=== PATIENT | female | born 1965 | race African-American/Black ===

== ENCOUNTER 2017-11-21 15:59 | Emergency (ER) | payer OTHER ==
[~2017-11-21] VITALS: Ht 162.6 cm; Wt 78.0 kg
[~2017-11-21 15:59] MED LIST: ACETAMINOPHEN-1 EAC1 PO; ACID REDUCER20 MG PO; AMLODIPINE BESYL5 M1 PO; AUGMENTIN 875875 MG PO; CYMBALTA20 MG PO; DIFLUCAN200 MG PO; DOXYCYCLINE 10100 M1 PO; FISH OIL 1,001000 M2 PO; FISHOIL; FLAGYL500 MG PO; HYDROCODONE-AP1 EAC6 PO; K-DUR10 ME1; LISINOPRIL-HCT1 EAC1 PO; LISINOPRIL2.5 MG; MEDROLDOSEPACK PO; MULTIVITAMINS1 EAC7 PO; OMEPRAZOLE 20 M20 MG PO; PAXIL20 MG; ROBAXIN 750 MG750 M1 PO; VITAMIN D2000 UNIT PO; VOLTAREN GEL 1100 G2 TOP; WOMEN'S DAILY1 EACH PO
[2017-11-21] MEDS ORDERED: CYMBALTA60 MG PO (16:15)
[2017-11-21] MEDS ORDERED: METFORMIN HCL500 MG PO (16:15)
[2017-11-21] MEDS ORDERED: ZANAFLEX2 MG PO (17:00)
[2017-11-21] MEDS ORDERED: MOBIC7.5 MG PO (17:00)
[2017-11-21 17:25] VITALS: BP 136/96
== END 2017-11-21 17:27 | disposition home or self-care (01) ==
LOC: M.ERS 15:59
DX: S16.1XXA Strain of muscle, fascia and tendon at neck level, initial encounter (principal); G44.209 Tension-type headache, unspecified, not intractable; F32.9 Major depressive disorder, single episode, unspecified; F41.9 Anxiety disorder, unspecified; I10 Essential (primary) hypertension; F17.210 Nicotine dependence, cigarettes, uncomplicated; Z88.2 Allergy status to sulfonamides; X58.XXXA Exposure to other specified factors, initial encounter; Y93.89 Activity, other specified; Y92.89 Other specified places as the place of occurrence of the external cause; Y99.8 Other external cause status

== ENCOUNTER 2017-11-28 22:24 | Emergency (ER) | payer OTHER ==
[~2017-11-28] VITALS: Ht 162.6 cm; Wt 78.0 kg
[~2017-11-28 22:24] MED LIST changes: +CYMBALTA60 MG PO; +METFORMIN HCL500 MG PO; +MOBIC7.5 MG PO; +ZANAFLEX2 MG PO
[2017-11-28] MEDS ORDERED: CIPRO HC OTIC S10 ML OTIC (23:58)
[2017-11-29 00:19] VITALS: BP 136/88
== END 2017-11-29 00:21 | disposition home or self-care (01) ==
LOC: M.ERS 22:24
DX: H66.91 Otitis media, unspecified, right ear (principal); H61.21 Impacted cerumen, right ear; I10 Essential (primary) hypertension; F41.9 Anxiety disorder, unspecified; F32.9 Major depressive disorder, single episode, unspecified; F17.210 Nicotine dependence, cigarettes, uncomplicated; Z90.710 Acquired absence of both cervix and uterus; Z88.0 Allergy status to penicillin; Z90.49 Acquired absence of other specified parts of digestive tract

== ENCOUNTER 2020-02-04 19:15 | Emergency (ER) | payer OTHER ==
[~2020-02-04] VITALS: Ht 162.6 cm; Wt 81.7 kg
[~2020-02-04 19:15] MED LIST changes: +CIPRO HC OTIC S10 ML OTIC
[2020-02-04] MEDS ORDERED: ZYRTEC10 M5 PO (19:25)
[2020-02-04 20:04] LABS: URINE BILIRUBIN NEGATIVE (Negative); URINE BLOOD NEGATIVE (Negative); URINE CLARITY CLEAR; URINE COLOR YELLOW; URINE GLUCOSE-RANDOM NEGATIVE (Negative); URINE KETONES TRACE (Negative); URINE LEUKOCYTES-REFLEX NEGATIVE (Negative); URINE NITRITE-REFLEX NEGATIVE (Negative); URINE PROTEIN NEGATIVE (Negative); URINE UROBILINOGEN 0.2 E.U./dl (0.2-1.0)
[2020-02-04 20:15] LABS: ABSOLUTE BASOPHILS 0.1 thou/uL (0.0-0.2); ABSOLUTE MONOCYTES 0.5 thou/uL (0.0-1.2); ABSOLUTE NEUTROPHILS 7.1 thou/uL (1.6-8.1); BASOPHILS 0.9 %; EOSINOPHILS 0.5 %; HEMATOCRIT 42.9 % (37.0-47.0); HEMOGLOBIN 14.4 gm/dL (12.0-15.0); LYMPHOCYTES 20.1 %; MCH 29.2 pg (26.0-34.0); MCHC 33.7 g/dL (28.0-37.0); MCV 86.6 fL (80.0-100.0); MONOCYTES 5.2 %; MPV 8.3 fl. (7.2-11.1); NUCLEATED RBCS 0 /100WBC; PLATELET COUNT* 259 thou/uL (150-400); POLYS 73.3 %; RBC 4.95 mil/uL (4.20-5.00); RDW-CV 14.9 % (10.5-14.5); WBC 9.7 thou/uL (4.0-11.0)
[2020-02-04 20:28] LABS: CALCIUM 8.9 mg/dL (8.5-10.1)
[2020-02-04 20:32] LABS: ALBUMIN 3.5 g/dL (3.4-5.0); TOTAL BILIRUBIN 0.6 mg/dL (<0.1-1.0); TOTAL PROTEIN 7.8 g/dL (6.4-8.2)
[2020-02-05] MEDS ORDERED: ZOFRAN ODT4 MG PO (01:17)
[2020-02-05 01:51] VITALS: BP 132/89
--- NOTE | 2020-02-05 11:37 | EKG ---
[place] [address] ELECTROCARDIOGRAM REPORT Name: CAROLYN CHAMBERS Room: [facility]#: [id number] Admission: 02/04/20 Attend Phys: Discharge: 02/05/20 Date of : 67 Date of Service: 02/04/202049 Report #: [id number] THIS REPORT FOR: //name// [facility] ED Test Date: 2020-02-04 Test Time: 20:50:33 Pat Name: CAROLYN CHAMBERS Department: Room: Gender: Director [employer] Communications: ANITA : 1965 Requested By: Tiffany Grossman Order Number: [id number] Reading MD: Dontae Nieves Measurements Intervals [place] Rate: 97 P: 54 MA: 125 QRS: -4 QRSD: 89 T: 148 QT: 308 QTc: 391 Interpretive Statements Sinus rhythm Biatrial enlargement Probable left ventricular hypertrophy Nonspecific T abnrm, anterolateral leads Baseline wander in lead(s) II,III,aVF Compared to ECG 11/03/2014 13:15:26 T-wave abnormality no longer present Possible ischemia no longer present Electronically Signed On 02-05-2020 11:37:41 CDT by Dontae Nieves [email or web address] <ELECTRONICALLY SIGNED> By: Dontae Nieves MD, FACC 02/05/20 [id number] Dontae Nieves MD, FAC /EPI
== END 2020-02-05 01:51 | disposition home or self-care (01) ==
LOC: M.ERS 19:15
PROVIDERS: Emergency Medicine
DX: K56.7 Ileus, unspecified (principal); I10 Essential (primary) hypertension; F17.210 Nicotine dependence, cigarettes, uncomplicated; Z98.890 Other specified postprocedural states; Z90.710 Acquired absence of both cervix and uterus; Z90.49 Acquired absence of other specified parts of digestive tract; Z85.038 Personal history of other malignant neoplasm of large intestine

== ENCOUNTER 2020-04-07 11:27 | Emergency (ER) | payer OTHER ==
[~2020-04-07] VITALS: Ht 162.6 cm; Wt 74.8 kg
[~2020-04-07 11:27] MED LIST changes: +ZOFRAN ODT4 MG PO; +ZYRTEC10 M5 PO
[2020-04-07] MEDS ORDERED: IBUPROFEN 600600 M1 PO (12:31)
[2020-04-07 12:58] VITALS: BP 145/75
== END 2020-04-07 12:59 | disposition home or self-care (01) ==
LOC: M.ERS 11:27
DX: M77.51 Other enthesopathy of right foot and ankle (principal); I10 Essential (primary) hypertension; F17.210 Nicotine dependence, cigarettes, uncomplicated; Z88.2 Allergy status to sulfonamides; Z98.890 Other specified postprocedural states; Z90.710 Acquired absence of both cervix and uterus; Z85.038 Personal history of other malignant neoplasm of large intestine

== ENCOUNTER 2021-01-25 12:20 | Emergency (ER) | payer OTHER ==
[~2021-01-25] VITALS: Ht 162.6 cm; Wt 82.6 kg
[~2021-01-25 12:20] MED LIST changes: +IBUPROFEN 600600 M1 PO
[2021-01-25 14:01] VITALS: BP 154/96
== END 2021-01-25 14:02 | disposition home or self-care (01) ==
LOC: M.ERS 12:20
DX: J06.9 Acute upper respiratory infection, unspecified (principal); Z20.822 Contact with and (suspected) exposure to COVID-19; I10 Essential (primary) hypertension; F17.210 Nicotine dependence, cigarettes, uncomplicated; Z90.49 Acquired absence of other specified parts of digestive tract; Z90.710 Acquired absence of both cervix and uterus; Z85.038 Personal history of other malignant neoplasm of large intestine